=== PATIENT | female | born 1930 | race Caucasian/White ===

== ENCOUNTER 2016-08-19 12:45 | Observation (INO) | payer OTHER ==
[2016-08-19 13:22] LABS: BASOPHILS 0.6 % (0.0-2.0); EOSINOPHILS 4.3 % (0.0-6.0); EOSINOPHILS# 0.2 X 10^3uL (0.0-0.4); HEMOGLOBIN 8.7 g/dL (12.0-16.0); MEAN CORPUS. HGB CONCENTRATION 29.5 g/dL (32.0-36.0); MEAN PLATELET VOLUME 7.5 fL (7.4-10.4); MONOCYTES 8.2 % (2.0-10.0); MONOCYTES# 0.5 X 10^3uL (0.2-1.0); NEUTROPHILS 68.9 % (54.0-75.0); PLATELET COUNT 202 X 10^3uL (130-440); WHITE BLOOD COUNT 5.7 X 10^3uL (3.9-10.7)
[2016-08-19 13:30] LABS: BLOOD UREA NITROGEN 25 mg/dL (7-17); CALCIUM 9.2 mg/dL (8.4-10.2); CHLORIDE 105 mmol/L (98-107); GLUCOSE 119 mg/dL (70-100); POTASSIUM 4.5 mmol/L (3.5-5.1); SODIUM 143 mmol/L (137-145)
[2016-08-19 13:32] LABS: INR 1.7
[2016-08-19 13:44] LABS: TROPONIN I < 0.012 ng/mL (0.00-0.034)
[2016-08-19 13:47] LABS: MEAN CELL VOLUME 65.1 fL (80.0-100.0); RED CELL DISTRIBUTION WIDTH 18.9 % (11.5-14.5)
[2016-08-19 13:48] LABS: MEAN CORPUSCULAR HEMOGLOBIN 19.2 pg (29.0-35.0)
[2016-08-19 14:59] LABS: HEMATOCRIT 28.9 % (36.0-48.0); HEMOGLOBIN 8.4 g/dL (12.0-16.0)
[2016-08-19] MEDS ORDERED: HOME MEDICATION LIST NEEDED 1 EA EACH MC ONE (15:24)
--- NOTE | 2016-08-19 15:46 | ER NURSING DOCUMENTATION ---
Nurse's Notes [facility] Name:Ana Hinds Age:86 yrs Sex:Female :1930 Arrival Date:08/19/2016 Time:12:45 Bed4 Private MD:Rick Martinez Diagnosis:Anemia;Dizziness - Vertigo;Dehydration Presentation: 08/19 12:48 Presenting complaint: Patient states: dizziness. Transition of care: Home. lp 12:48 Acuity: SUDEEP 2 lp 12:48 Method Of Arrival: Private Vehicle lp Triage Assessment: 13:05 General: Appears in no apparent distress, Behavior is appropriate for age. Pain: Denies lp pain. Historical: - Allergies: Heparin; - Home Meds: 1. Coumadin 2.5 mg oral tab 1 tab once daily 2. omeprazole 40 mg oral cpDR 1 cap once daily before a meal 3. Lidoderm 5 %(700 mg/patch) topical ptmd 1 patch once daily 4. tramadol 50 mg oral tab 1 tab every 6 hours as needed for Pain 5. simvastatin 20 mg oral tab 1 tab once daily in the evening 6. lisinopril 10 mg oral tab 1 tab once daily 7. metoprolol tartrate oral 1 tab once daily 8. Colace 100 mg oral cap 1 cap 2 times per day 9. aspirin 81 mg oral tab 1 tab once daily - PMHx: CVA; Hyperlipidemia; Peripheral artery disease; Constipation; carotid stenosis; DVT; Hypoxia; OBESITY; ANEMIA; IBS; COPD; CAD; Hypertension; OSTEOARTHRITIS; KIDNEY STONES; ATRIAL FIB; Chronic back pain; - PSHx: carotid artery surgery; Cholecysectomy; Appendectomy; c section; T&A; - Tetanus: < 10 years. - Ebola Screening: : Patient negative for fever greater than or equal to 101.5 degrees Fahrenheit, and additional compatible Ebola Virus Disease symptoms. Patient denies exposure to infectious person. Patient denies travel to an Ebola-affected area in the 21 days before illness onset. . - Immunization history: Pneumococcal vaccine is up to date, Flu Vaccine < 1 year. - Social history: Smoking status: Patient states former smoker of tobacco. Screenin:06 Infectious Disease Risk None. Abuse screen: Denies threats or abuse. Denies injuries lp from another. Nutritional screening: No deficits noted. Assessment: 13:05 See Triage Assessment done by same RN. See Triage Assessment done by same RN. lp Cardiovascular: Capillary refill < 3 seconds Heart tones S1 S2 Rhythm is atrial fibrillation. Respiratory: Airway is patent Respiratory effort is even, unlabored. GI: Abdomen is flat, non- distended. Vital Signs: 12:55 BP 121 / 47; Pulse 94; Resp 16; Temp 97.9; Pulse Ox 87% on R/A; Weight 55.34 kg; Height lp 5 ft. 2 in. (157.48 cm); Pain 0/10; 13:01 BP 121 / 47; Pulse 78; Resp 26; Temp 98.2(O); Pulse Ox 97% on 2 lpm NC; Weight 55.34 kg arc (R); Height 5 ft. 2 in. (157.48 cm) (R); Pain 0/10; 13:03 BP 121 / 55 Supine; Pulse 77; Resp 19; Pulse Ox 97% on 2 lpm NC; arc 13:06 BP 108 / 54 Standing; Pulse 98; Resp 18; Pulse Ox 95% on 2 lpm NC; arc 14:32 BP 144 / 54 Sitting; Pulse 69; Resp 18; Pulse Ox 97% on 2 lpm NC; arc 14:32 BP 121 / 37 Standing; Pulse 86; Resp 24; Pulse Ox 92% on 2 lpm NC; arc 15:00 BP 108 / 54 (auto/); tg 15:04 Pulse 71 MON; Resp 23; Pulse Ox 97% ; tg 15:29 Pulse 66 MON; Resp 21; Pulse Ox 98% ; tg 13:01 Body Mass Index 22.31 (55.34 kg, 157.48 cm) arc [place] Coma Score: 15:33 Eye Response: spontaneous(4). Verbal Response: oriented(5). Motor Response: obeys cd commands(6). Total: 15. ED Course: 12:46 Patient arrived in ED. ama 12:47 Rick Martinez MD is Private Physician. ama 12:48 Roxie Medina, RN is Primary Nurse. lp 12:49 Triage completed. lp 12:52 EKG done. (by ED staff). Reviewed by Pasha Argueta MD. arc 12:59 Pasha Argueta MD is Attending Physician. cd 13:[address] Argueta notified. lp 13:06 Valuables Remains with patient Patient has correct armband on for positive lp identification. Placed in gown. Bed in low position. Call light in reach. Side rails up X 1. Cardiac Monitoring On for Nurse Monitoring only. Pulse Ox - RN Monitoring Only NIBP On - RN Monitoring Only. 13:15 Inserted peripheral IV: 20 gauge in right antecubital area and blood collected. arc 15:40 EKG attached tg 15:43 Rick Martinez MD is Admitting Physician. cd Administered Medications: 13:12 Drug: NS 0.9% 500 ml; Route: IV; Rate: bolus; Site: right antecubital; lp 15:48 Follow up: IV Status: Completed infusion; IV Intake: 500ml tg 15:33 CANCELLED (Physician Discretion): NS 0.9% 500 ml IV at bolus once tg Point of Care Testing: Urine Dip: 14:25 pH: 7.5; ; Specific [place]: 1.015; Ketones: Negative; Glucose: Negative; Protein: arc Negative; Leukocytes: Negative; Nitrite: Negative ; Blood: Negative; Bilirubin: Negative ; Urobilinogen: Normal Intake: 15:48 IV: 500ml; Total: 500ml. tg Outcome: 15:44 Decision to Admit by Provider. cd 15:45 Admitted to Med/surg accompanied by nurse, family with patient, via stretcher, with tg oxygen. 15:45 Condition: unchanged 15:45 Discharge Assessment: Patient awake and alert. 15:45 Instructed on need to admit 15:45 Patient left the ED. tg Signatures: Stan Molina RN RN tg Roxie Medina RN RN lp Daley, Chris, MD MD cd Addy Marie, Reg Reg ama Shama Stover, Reg Reg arc
--- NOTE | 2016-08-19 15:46 | ER PHYSICIAN DOCUMENTATION ---
Physician Documentation [facility] Name:Ana Hinds Age:86 yrs Sex:Female :1930 Arrival Date:08/19/2016 Time:12:45 Bed4 Private MD:Rick Martinez ED, Chris Disposition: 08/19/16 15:44 Admit ordered for Rick Martinez. Preliminary diagnosis are Anemia, Dizziness - Vertigo, Dehydration. - Bed requested for Medical/Surgical. - Condition is Fair. - Problem is new. - Symptoms have improved. 23 HR OBS Yes HPI: 08/19 13:00 This 86 yrs old Female presents to ER via Private Vehicle with complaints of cd Dizziness and lightheaded with standing. 13:00 The patient presents with dizziness, lightheadedness. Onset: The symptom(s)/episode cd began/occurred acutely, today. Context: occurred at home, occurred while the patient was standing. Modifying factors: The symptoms are alleviated by lying down, the symptoms are aggravated by standing up. Associated signs and symptoms: Pertinent negatives: abdominal pain, chest pain, confusion, diaphoresis, headache, nausea, palpitations, shortness of breath, syncope, vomiting. Severity of symptoms: At their worst the symptoms were moderate in the emergency department the symptoms are unchanged. Patient's baseline: Neuro: alert and fully oriented, Motor: no deficits, Ambulation: walks without assistance, Speech: normal. The patient has not experienced similar symptoms in the past. Historical: - Allergies: Heparin; - Home Meds: 1. Coumadin 2.5 mg oral tab 1 tab once daily 2. omeprazole 40 mg oral cpDR 1 cap once daily before a meal 3. Lidoderm 5 %(700 mg/patch) topical ptmd 1 patch once daily 4. tramadol 50 mg oral tab 1 tab every 6 hours as needed for Pain 5. simvastatin 20 mg oral tab 1 tab once daily in the evening 6. lisinopril 10 mg oral tab 1 tab once daily 7. metoprolol tartrate oral 1 tab once daily 8. Colace 100 mg oral cap 1 cap 2 times per day 9. aspirin 81 mg oral tab 1 tab once daily - PMHx: CVA; Hyperlipidemia; Peripheral artery disease; Constipation; carotid stenosis; DVT; Hypoxia; OBESITY; ANEMIA; IBS; COPD; CAD; Hypertension; OSTEOARTHRITIS; KIDNEY STONES; ATRIAL FIB; Chronic back pain; - PSHx: carotid artery surgery; Cholecysectomy; Appendectomy; c section; T&A; - Tetanus: < 10 years. - Ebola Screening: : Patient negative for fever greater than or equal to 101.5 degrees Fahrenheit, and additional compatible Ebola Virus Disease symptoms. Patient denies exposure to infectious person. Patient denies travel to an Ebola-affected area in the 21 days before illness onset. . - Immunization history: Pneumococcal vaccine is up to date, Flu Vaccine < 1 year. - Social history: Smoking status: Patient states former smoker of tobacco. ROS: 15:33 Eyes: Negative for injury, pain, redness, discharge, blurry vision and loss of vision. cd ENT: Negative for injury, pain, epistaxis and discharge. Neck: Negative for injury, pain, stiffness and swelling. Cardiovascular: Negative for chest pain, palpitations, edema and pleuritic pain. Respiratory: Negative for shortness of breath, dyspnea on exertion, cough, sputum production, wheezing, hemoptysis and pleuritic chest pain. Abdomen/GI: Negative for abdominal pain, nausea, vomiting, diarrhea, constipation, distension, melena, hematochezia and hematemesis. Back: Negative for injury, pain or muscle spasms. : Negative for injury, bleeding, discharge, dysuria, frequency, urgency and swelling. MS/Extremity: Negative for injury, deformity, edema, calf tenderness, pain or coldness. 15:33 Skin: Negative for injury, rash, itching and discoloration. cd 15:33 Constitutional: Positive for poor PO intake, Negative for chills, fever. 15:33 Neuro: Positive for dizziness, weakness, Negative for altered mental status, headache, loss of consciousness, speech changes, syncope, near syncope, tingling, visual changes. 15:33 All other systems are negative. Exam: Head/Face: Normocephalic, atraumatic. Eyes: Pupils equal round and reactive to light, extra-ocular motions intact. Lids and lashes normal. Conjunctiva and sclera are non-icteric and not injected. Cornea within normal limits. Periorbital areas with no swelling, redness, or edema. ENT: Nares patent. No nasal discharge, no septal abnormalities noted. Tympanic membranes are normal and external auditory canals are clear. Oropharynx with no redness, swelling, or masses, exudates, or evidence of obstruction, uvula midline. Mucous membranes dry 15:33 Neck: Trachea midline, no thyromegaly or masses palpated, and no cervical cd lymphadenopathy. Supple, full range of motion without nuchal rigidity, or vertebral point tenderness. No Meningismus. 15:33 Constitutional: The patient appears alert, awake, non-diaphoretic, non-toxic, well developed, well nourished, frail, pale. 15:33 Cardiovascular: Rate: normal, Rhythm: irregularly irregular, Pulses: no pulse deficits are appreciated, Heart sounds: normal, Edema: is not appreciated. 15:33 Respiratory: the patient does not display signs of respiratory distress, Respirations: normal, no acute changes, Breath sounds: are normal, clear throughout. 15:33 Abdomen/GI: Inspection: abdomen appears normal, Bowel sounds: normal, active, Palpation: abdomen is soft and non-tender, no appreciated organomegaly, Rectal exam: Stool: brown, guaiac negative, mass, is not appreciated, the exam is chaperoned by the nurse, Indicators: McBurney's point is not tender, Boogie's sign is negative. 15:33 Back: Exam negative for acute changes, CVA tenderness, is absent. 15:33 : CVA tenderness, is absent. 15:33 Neuro: Orientation: is normal, appropriate for stated age, Mentation: is normal, Memory: is normal, Cranial nerves: CN II- XII are normal as tested, Cerebellar function: is grossly normal, normal finger to nose testing, heel to shaver testing is normal, the patient is unable to track heel to shaver on both sides, Motor: is normal, Sensation: is normal, Gait: not tested. Vital Signs: 12:55 BP 121 / 47; Pulse 94; Resp 16; Temp 97.9; Pulse Ox 87% on R/A; Weight 55.34 kg; Height lp 5 ft. 2 in. (157.48 cm); Pain 0/10; 13:01 BP 121 / 47; Pulse 78; Resp 26; Temp 98.2(O); Pulse Ox 97% on 2 lpm NC; Weight 55.34 kg arc (R); Height 5 ft. 2 in. (157.48 cm) (R); Pain 0/10; 13:03 BP 121 / 55 Supine; Pulse 77; Resp 19; Pulse Ox 97% on 2 lpm NC; arc 13:06 BP 108 / 54 Standing; Pulse 98; Resp 18; Pulse Ox 95% on 2 lpm NC; arc 14:32 BP 144 / 54 Sitting; Pulse 69; Resp 18; Pulse Ox 97% on 2 lpm NC; arc 14:32 BP 121 / 37 Standing; Pulse 86; Resp 24; Pulse Ox 92% on 2 lpm NC; arc 15:00 BP 108 / 54 (auto/); tg 15:04 Pulse 71 MON; Resp 23; Pulse Ox 97% ; tg 15:29 Pulse 66 MON; Resp 21; Pulse Ox 98% ; tg 13:01 Body Mass Index 22.31 (55.34 kg, 157.48 cm) arc [place] Coma Score: 15:33 Eye Response: spontaneous(4). Verbal Response: oriented(5). Motor Response: obeys cd commands(6). Total: 15. MDM: 12:59 Patient medically screened. cd 13:12 Data interpreted: Pulse oximetry: on room air is 86 %. Interpretation: hypoxia. Plan: cd O2 by NC applied. 13:15 Differential diagnosis: cardiac arrhythmia, generalized weakness, GI bleed, cd hypovolemia, idiopathic dizziness, sepsis, CAD. 13:30 Data reviewed: vital signs, nurses notes, old medical records, EKG, and as a result, I cd will continue to observe the patient, administer IV fluids, NS bolus, NS maintenence. 15:30 ECG:. Physician consultation: Rick Martinez MD was called at 15:25, was contacted at cd 15:28, regarding admission, to the floor, consult, patient's condition, need to evaluate the patient as soon as possible, and will see patient in inpatient room, shortly, later today. 15:39 Counseling: I had a detailed discussion with the patient and/or guardian regarding: the cd historical points, exam findings, and any diagnostic results supporting the discharge/admit diagnosis, lab results, the need for further work-up and treatment in the hospital, risk of leaving the Emergency Department. Response to treatment: the patient's symptoms have markedly improved after treatment, but her repeat H/H revealed 8.2 and 28.4. This was discussed with Dr. FLORES and the patient and she agreed to admission for RBC Transfusion. 15:40 EKG attached tg 15:41 Admission orders: after a detailed discussion of the patient's condition and case, the admit orders are written by me. 08/19 13:41 Order name: BASIC METABOLIC PANEL; Complete Time: 15:20 [facility] 08/19 15:13 Interpretation: Normal Except: BLOOD UREA NITROGEN 25; CREATININE 1.1; Dehydration. 08/19 13:42 Order name: PROTIME/INR; Complete Time: 15:20 [facility] 08/19 15:14 Interpretation: Abnormal: PROTIME 21.8; PT elevated / INR Normal: On Coumadin. 08/19 13:44 Order name: TROPONIN I; Complete Time: 15:20 [facility] 08/19 15:14 Interpretation: Normal. 08/19 13:49 Order name: CBC AUTO DIF, MDIF/RMOR IF IND; Complete Time: 15:20 [facility] 08/19 15:14 Interpretation: HEMOGLOBIN 8.7; HEMATOCRIT 34.0; Anemia. 08/19 15:06 Order name: HGB HCT PANEL; Complete Time: 15:20 [facility] 08/19 15:20 Interpretation: Abnormal: HEMOGLOBIN 8.4; HEMATOCRIT 28.9; Anemia with Teardrop cells. 08/19 17:46 Order name: ABO GROUP [facility] 08/19 17:46 Order name: RH TYPE [facility] 08/19 17:46 Order name: ANTIBODY SCREEN [facility] 08/19 17:52 Order name: IRON PANEL [facility] 08/19 17:59 Order name: CROSSMATCH IMMEDIATE SPIN [facility] 08/19 18:00 Order name: CROSSMATCH IMMEDIATE SPIN [facility] 08/20 07:03 Order name: BASIC METABOLIC PANEL [facility] 08/20 07:20 Order name: CBC W/ MANUAL DIFFERENTIAL [facility] 08/19 13:01 Order name: Cardiac Monitoring - Continuous; Complete Time: 13:48 cd 08/19 13:01 Order name: Pulse Ox Continuous; Complete Time: 13:48 cd 08/19 13:01 Order name: EKG - 12 Lead; Complete Time: 13:48 cd 08/19 13:01 Order name: Oxygen; Complete Time: 13:48 cd EC:53 Rate is 72 beats/min. Rhythm is irregularly irregular. QRS [place] is Normal. QRS interval cd is prolonged. QT interval is prolonged. Clinical impression: Atrial Fibrillation, RBBB, Inferior Infarct, Age indeterminate...Unchanged since 2015. Interpreted by me. Dispensed Medications: 13:12 Drug: NS 0.9% 500 ml; Route: IV; Rate: bolus; Site: right antecubital; lp 15:48 Follow up: IV Status: Completed infusion; IV Intake: 500ml tg 15:33 CANCELLED (Physician Discretion): NS 0.9% 500 ml IV at bolus once tg Point of Care Testing: Urine Dip: 14:25 pH: 7.5; ; Specific [place]: 1.015; Ketones: Negative; Glucose: Negative; Protein: arc Negative; Leukocytes: Negative; Nitrite: Negative ; Blood: Negative; Bilirubin: Negative ; Urobilinogen: Normal Signatures: Stan Molina RN RN Roxie Medina RN RN Pasha Argueta MD MD cd
[2016-08-19] MEDS ORDERED: WARFARIN SODIUM 5 MG TABLET PO SCH (16:00)
[2016-08-19] MEDS: ACETAMINOPHEN 325 MG TABLET PO PRN (16:28)
[2016-08-19] MEDS ORDERED: traMADol HCL 50 MG TABLET PO PRN (16:39)
[2016-08-19 17:33] LABS: IRON 20 ug/dL (37-170)
[2016-08-19 17:40] LABS: TOTAL IRON BINDING CAPACITY 580 ug/mL (250-400); TRANSFERRIN 389 mg/dL (206-381); TRANSFERRIN SATURATION 3 % (14-50)
[2016-08-19 17:46] LABS: ABO GROUP TYPE O; ANTIBODY SCREEN NEGATIVE; RH TYPE POSITIVE
[2016-08-19 17:58] LABS: CROSSMATCH IMMEDIATE SPIN COMPATIBLE
[2016-08-19 17:59] LABS: CROSSMATCH IMMEDIATE SPIN COMPATIBLE
[2016-08-19] MEDS ORDERED: NORMAL SALINE 250 ML IV ONE ×2 (18:27→21:12)
[2016-08-19] MEDS: FUROSEMIDE 20 MG/2 ML VIAL IV PRN ×2 (20:51→23:36)
[2016-08-19] MEDS ORDERED: SIMVASTATIN 20 MG TABLET PO SCH (21:00)
[2016-08-20] MEDS ORDERED: PANTOPRAZOLE 40 MG TABLET PO SCH (06:30)
[2016-08-20 06:55] LABS: BLOOD UREA NITROGEN 25 mg/dL (7-17); CALCIUM 9.3 mg/dL (8.4-10.2); CHLORIDE 102 mmol/L (98-107); GLUCOSE 92 mg/dL (70-100); POTASSIUM 4.2 mmol/L (3.5-5.1); SODIUM 142 mmol/L (137-145)
--- NOTE | 2016-08-20 06:57 | HISTORY & PHYSICAL ---
DATE OF ADMISSION: 08/19/16 ATTENDING PHYSICIAN: Rick Martinez MD CHIEF COMPLAINT: Dizziness. HISTORY OF PRESENT ILLNESS: Patient is an 86-year-old female who awoke this morning with dizziness and lightheadedness. No vertigo or dysequilibrium. She had difficulty going from a sitting to a standing position due to the lightheadedness. No epistaxis, hematemesis, hematochezia, melena, hematuria, vaginal bleeding, abdominal pain, nausea, vomiting, diarrhea, constipation, dysuria, etc. 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 MEDICATIONS Warfarin 2.5 mg 1-2 tabs p.o. daily as directed states that she takes the same dose every day, although according to our clinic records, she is to be taking Coumadin 5 mg 5 times per week and 2.5 mg 2 times per week this is not happening currently. Aspirin 81 mg p.o. daily. Omeprazole 40 mg p.o. daily. Tramadol 50 mg p.o. b.i.d. PRN. Lidoderm 5% patch to affected areas. Simvastatin 20 mg p.o. q.h.s. Colace 100 mg p.o. daily. PAST MEDICAL HISTORY 1. Adult-onset acne. 2. Anemia, recurrent. 3. Atrial fibrillation, 2016. 4. 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 Pavon. 5. Carotid stenosis. 6. Chronic pain syndrome. 7. Constipation. 8. Chronic obstructive pulmonary disease, oxygen dependent on oxygen at 2 liters per minute by nasal prongs. 9. Cerebrovascular accident. 10. 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 11. Deep vein thrombosis. 12. Left axillary external fistula 2014. 13. Fecal incontinence. 14. Hypertension. 15. Hyperlipidemia. 16. Irritable bowel syndrome. 17. Kidney stones. 18. Left subclavian vein stenosis, for which he has had multiple surgeries, followed by Dr. Pavon, Dr. Tom and Dr. Tobin. 19. Morbid obesity. 20. Overactive bladder. 21. Global geriatric decline. 22. Bilateral CMC joint osteoarthritis. 23. Peripheral arterial disease, primarily involving the left arm and followed by Dr. Tom. 24. Perforated duodenal ulcer, 2011. 25. Pulmonary hypertension, severe, followed by Dr. Pavon. 26. 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 27. Vasomotor rhinitis. 28. Appendectomy 2008. 29. Bilateral subclavian bypass 1988 and 1994 on the left side in 2016, which unfortunately reoccluded. 30. Caesarean section. 31. Left carotid artery surgery in 2016 with distal brachial artery bypass. 32. Cholecystectomy 2008. 33. Pilonidal cyst surgery. 34. Tonsillectomy and adenoidectomy. SOCIAL HISTORY: , 3 children. 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 Quit smoking 1991 after an 80-100 pack-a-year smoking history. Occasional alcohol. FAMILY HISTORY: Father at 65 of heart disease. Mother at 92 of heart disease. Brother at 76 of pancreatic cancer. REVIEW OF SYSTEMS: No kidney infections, liver, diabetes, thyroid, seizures, skin, allergy or bleeding disorders. Gets annual flu shot. PREVENTATIVE HEALTH: Had Pneumovax and received a Prevnar 2013. Zostavax 2011. Tetanus shot 2011. PHYSICAL EXAMINATION GENERAL: Well-developed, well-nourished frail female. Alert and oriented x3. HEENT: EOMI. PERRLA. Fundi difficult to visualize. Conjunctivae very pale. TMs normal. No coryza. Pharynx not injected. Midline structures. NECK: No lymphadenopathy. No thyromegaly. No carotid bruits. Neck supple. CHEST: Clear. No rales, rhonchi or wheezes. Good breath sounds and symmetry throughout. COR: Irregular irregular without murmurs, gallops, rubs or clicks. No jugular venous distention. No ectopy. ABDOMEN: Soft, nontender. No hepatosplenomegaly. No masses. No bruits. No inguinal nodes. Bowel sounds present. EXTREMITIES: No clubbing, cyanosis or edema. Posterior tibialis pulses present. Left hand feels cool and has very slow capillary refill. Fingernail beds pale bilaterally. NEUROLOGIC: Cranial nerves 2-12 intact. Sensory intact. LABORATORY DATA: Sodium 143, potassium 4.5, chloride 105, CO2 28, BUN 25, creatinine 1.1, glucose 119, BUN 9.2, troponin I less than 0.012. INR 1.7. White blood cell count 5.7 with hemoglobin and hematocrit 8.7/34.0 with MCV 65. MCH 19. MCHC 29 with an RDW 18.9. Platelets 202,000. After patient received 0.5 liter of IV fluids, repeat hemoglobin and hematocrit was 8.4/28.9. ASSESSMENT 1. Dizziness, multifactorial but probably related to a combination of dehydration and anemia. 2. Microcytic anemia. 3. Dehydration. 4. Coronary artery disease. 5. Atrial fibrillation. 6. Hypertension. 7. Hyperlipidemia. 8. History of cerebrovascular accident. 9. History of deep vein thrombosis. 10. Chronic obstructive pulmonary disease, oxygen dependent. 11. History of subclavian vein thrombosis for which she has had multiple surgeries and had bilateral subclavian artery bypass on multiple occasions, for which the left arm eventually reoccluded last year. Patient had issues with infections of the graft, but that seems to have resolved. Unfortunately she is not a good candidate for further surgeries in the left arm and so far she seems to be tolerating the poor blood supply to the left arm. 12. History of perforated duodenal ulcer. 13. Pulmonary hypertension. 14. Chronic pain syndrome, involving the cervical, thoracic and lumbar spine. 15. Global geriatric decline patient appears to have an element of cognitive dysfunction. PLAN 1. Transfusion of packed red blood cells, 2 units over 3 hours and each unit followed by Lasix 20 mg IV. 2. Recheck CBC in a.m. 3. Serum iron, B12 and folate levels. 4. Mini-mental status exam. 5. will bring in all medications for the pharmacist to review tomorrow. 6. Confirm full-code status. 7. Oxygen at 2 liters per minute by nasal prongs. Copies to: Dr. Pavon, Dr. Negro [facility]
[2016-08-20 07:13] LABS: BAND% (Manual) 1 % (0.0-1.0); EOSINOPHIL % (Manual) 2 % (0.0-6.0); LYMPHOCYTE % (Manual) 30 % (20.0-40.0); MONOCYTE % (Manual) 6 % (2.0-10.0); NEUTROPHIL % (Manual) 61 % (54.0-75.0)
[2016-08-20 07:18] LABS: BURR CELLS PRESENT; PLATELET ESTIMATE ADEQUATE; TARGET CELLS PRESENT; TEAR DROP CELLS PRESENT
[2016-08-20 07:19] LABS: HEMATOCRIT 38.2 % (36.0-48.0); HEMOGLOBIN 11.9 g/dL (12.0-16.0); MEAN CELL VOLUME 69.2 fL (80.0-100.0); MEAN CORPUS. HGB CONCENTRATION 31.2 g/dL (32.0-36.0); MEAN CORPUSCULAR HEMOGLOBIN 21.6 pg (29.0-35.0); MEAN PLATELET VOLUME 7.7 fL (7.4-10.4); PLATELET COUNT 157 X 10^3uL (130-440); RED BLOOD COUNT 5.53 X 10^6uL (4.20-6.10); RED CELL DISTRIBUTION WIDTH 22.2 % (11.5-14.5); WHITE BLOOD COUNT 6.8 X 10^3uL (3.9-10.7)
[2016-08-20] MEDS: ACETAMINOPHEN 325 MG TABLET PO PRN (09:00)
[2016-08-20] MEDS ORDERED: DOCUSATE SODIUM 100 MG CAPSULE PO SCH (09:00)
[2016-08-20] MEDS ORDERED: LIDOCAINE 5% 1 PATCH PATCH TOPICAL SCH (09:00)
[2016-08-20] MEDS ORDERED: LISINOPRIL 20 MG TABLET PO SCH (09:00)
[2016-08-20 11:13] VITALS: BP 120/57; PULSE 76; RESP 16; TEMP 98.2; O2SAT 93
--- NOTE | 2016-08-20 17:36 | DISCHARGE SUMMARY ---
DATE OF ADMISSION: 08/19/16 DATE OF DISCHARGE: 08/20/16 ATTENDING PHYSICIAN: Rick Martinez MD DIAGNOSES 1. Dizziness, multifactorial, but probably related to a combination of dehydration and anemia. 2. Iron-deficiency anemia. 3. Coronary artery disease. 4. Atrial fibrillation. 5. Hypertension. 6. Hyperlipidemia. 7. History of cerebrovascular accident. 8. History of deep vein thrombosis. 9. Chronic obstructive pulmonary disease, oxygen dependent. 10. History of subclavian vein thrombosis. 11. History of perforated duodenal ulcer. 12. Pulmonary hypertension. 13. Chronic pain syndrome, including the cervical, thoracic and lumbar spine. 14. Global geriatric decline. 15. Mild dementia with mini-mental status exam 25/30. HISTORY OF PRESENT ILLNESS: Patient is an 86-year-old female who awoke the morning of admission with dizziness and lightheadedness. No vertigo or dysequilibrium. She had difficulty going from a sitting to a standing position due to the lightheadedness. No epistaxis, hematemesis, hematochezia, melena, hematuria, vaginal bleeding, abdominal pain, nausea, vomiting, diarrhea, constipation, dysuria, etc. ER evaluation found her to be profoundly anemic with hemoglobin and hematocrit 8.4/28.9, with associated profound dehydration. HOSPITAL COURSE: Patient was hydrated with intravenous fluids and was given 2 units of packed red blood cells. By the next day, her hemoglobin and hematocrit was 11.9/38.9, serum iron level was low at 20 with B12 and folate levels pending. Normally we would consider colonoscopy, EGD and GI consultation. However, in light of patient's overall poor health and poor prognosis, I discussed options with the patient and her , and we felt that these procedures were not necessary at this time (risks greater than the benefit). However, if anemia becomes more problematic in the future, will need to reconsider. For now will keep her on ferrous sulfate 325 mg p.o. daily. If patient were to have cancer, she would not be a good surgical candidate. DISCHARGE INSTRUCTIONS: The patient may participate in activities as able. I believe she currently uses a walker with ambulation. She is on a cardiac, low- salt, low-cholesterol diet. She will have a follow up appointment with Dr. Martinez in 2 weeks, at which time he will check her CBC prior to clinic visit. DISCHARGE MEDICATIONS Aspirin 81 mg p.o. daily. Docusate 100 mg p.o. daily. Furosemide 20 mg p.o. daily. Lidoderm 5% patch to be applied in the morning and taken off at night. Omeprazole 40 mg p.o. daily. Simvastatin 20 mg p.o. q.h.s. Tramadol 50 mg p.o. q.i.d. PRN (patient typically takes 2 tablets per day). Warfarin 5 mg 5 days a week and 2.5 mg 2 days a week. Note that we could not completely confirm that this list of medications is correct and that these medications are what the patient was actually taking. I requested that the patient bring her medications in to the clinic in 2 weeks from now, to confirm what she is actually taking and not taking. We believe that she is off the Lisinopril and Metoprolol. We suspect that she is not taking the above Warfarin dose as prescribed currently. Copies to: Dr. Pavon, Dr. Negro [facility]
[2016-08-21] MEDS ORDERED: WARFARIN SODIUM 2.5 MG TABLET PO SCH (16:00)
[2016-08-22 20:15] LABS: RED BLOOD COUNT 4.54 X 10^6uL (4.20-6.10)
== END 2016-08-20 08:11 | disposition home or self-care (01) ==
LOC: ER 12:45 → IN 16:05
PROVIDERS: ADMIT Family Medicine; ATTEND Family Medicine
DX: E86.0 Dehydration (principal); D50.9 Iron deficiency anemia, unspecified; R42 Dizziness and giddiness; I48.2 Chronic atrial fibrillation; I25.10 Atherosclerotic heart disease of native coronary artery without angina pectoris; I10 Essential (primary) hypertension; E78.5 Hyperlipidemia, unspecified; Z86.73 Personal history of transient ischemic attack (TIA), and cerebral infarction without residual deficits; Z86.718 Personal history of other venous thrombosis and embolism; J44.9 Chronic obstructive pulmonary disease, unspecified; Z99.81 Dependence on supplemental oxygen; G89.4 Chronic pain syndrome; I27.2 Other secondary pulmonary hypertension; R54 Age-related physical debility; K59.00 Constipation, unspecified; K58.9 Irritable bowel syndrome, unspecified; E66.2 Morbid (severe) obesity with alveolar hypoventilation; R15.9 Full incontinence of feces; N32.81 Overactive bladder; Z79.899 Other long term (current) drug therapy
CPT/HCPCS: 36415; 36430; 80048; 82607; 82747; 83540; 84466; 84484; 85007; 85014; 85018; 85025; 85027; 85610; 86850; 86900; 86901; 86920; 93005; 93041; 96360; 96361; 96375; 96376; 99285; G0378; J1940; J7050; P9040-BL